=== PATIENT | male | born 1945 | race Caucasian/White ===

== ENCOUNTER 2019-11-30 09:29 | Outpatient (CLI) | payer MEDICARE, SELFPAY ==
--- NOTE | 2019-11-30 09:52 | CT_ITS ---
WS: [id number] CT ABDOMEN PELVIS TECHNIQUE: Contrast-enhanced CT of the abdomen and pelvis with coronal and sagittal reformatted image s. CLINICAL INFORMATION: FOLLOW UP COLON CA COMPARISON: None. DLP: 1149.[address] scans at [facility] use at least one of these dose optimization techniques: automat ed exposure control; mA and/or kV adjustment per patient size (includes targeted exams where dose is matched to clinical indication); or iterative reconstruction. FINDINGS: A few small low-attenuation lesions in the liver the largest in the left hepatic lobe anteriorly jose uring 11 mm. These are most consistent with hepatic cysts or small hemangiomas with some too small to characterize. Normal gallbladder. Normal portal vein and splenic vein. Normal GE junction. Lung base s are well aerated. Adrenal glands are normal. Normal renal parenchymal enhancement. No hydronephrosi s. Tiny right renal cyst. Normal caliber abdominal aorta. Normal spleen. Normal pancreas. Normal tani vincent abdominal aorta. Prior postoperative changes subtotal right colon resection with anastomosis. Moderate constipation. N o evidence of high-grade obstruction or recurrent mass. Marked enlargement and heterogeneous enhancement of the prostate with prominent nodularity. Prostate measures 5.2 x 5.3 x 7.3 CM. Recommend correlation with PSA. Indentation on the bladder. Scattered st ool in the colon. No evidence of high-grade obstruction. Incidental fat-containing umbilical hernia. No pelvic lymphadenopathy. No inguinal lymphadenopathy. Slight anterolisthesis L5 on S1. Chronic L5 spondylolysis. Multilevel degenerative disc disease with disc space narrowing throughout the lumbar spine. CT/CT abdomen pelvis w con* [id number] IMPRESSION: 1. Prior postoperative changes subtotal right colon resection with anastomosis . Moderate constipation. 2. No abdominal or pelvic lymphadenopathy. 3. Marked enlargement and heterogeneous enhancement of the prostate with nodul arity suspicious for neoplasia. Recommend correlation PSA. 4. Low-attenuation lesions in the liver most consistent with hepatic cysts and /or hemangiomas. Some are too small to characterize. 5. Grade 1 anterolisthesis L5 on S1 with chronic spondylolysis.
[2019-11-30] MEDS: iohexol 300 mg/mL 50 mL Btl PO (11:20)
[2019-11-30 11:25] LABS: Blood Urea Nitrogen 15 mg/dL (8-23)
[2019-11-30] MEDS: iohexol 300 mg/mL 100 mL Btl IV (11:33)
== END 2019-11-30 09:30 | disposition home or self-care (01) ==
LOC: RADWPI 09:34
PROVIDERS: Radiology Neuroradiology; Family Provider Family Medicine; PCP Family Medicine; Visit Provider Colon & Rectal Surgery
DX: C18.9 Malignant neoplasm of colon, unspecified (principal); Z98.890 Other specified postprocedural states; N40.0 Benign prostatic hyperplasia without lower urinary tract symptoms; M47.897 Other spondylosis, lumbosacral region
CPT/HCPCS: 74177; 82565; 84520; Q9967

== ENCOUNTER 2023-01-01 10:35 | Outpatient (CLI) | payer MEDICARE, SELFPAY ==
--- NOTE | 2023-01-01 11:03 | XR_ITS ---
WS: [id number] XR hand RT min 3V* [id number] REASON FOR EXAM: PAIN IN RIGHT FINGERS/PAIN IN R THUMB FINDINGS: No fracture or focal bone lesion. No erosions or periosteal reaction. Significant joint space narrowing with subchondral sclerosis and osteophytosis in the DIP joints of t he fingers. Similar arthropathic change in the PIP joint of the fifth finger. Similar but milder arth ropathic changes in the PIP joints of the second through the fourth fingers. Similar arthropathic change in the joints of the thumb. No soft tissue abnormality. XR/XR hand RT min 3V* [id number] IMPRESSION: Significant osteoarthritis of the fingers and thumb as above.
== END 2023-01-01 10:36 | disposition home or self-care (01) ==
PROVIDERS: PCP Family Medicine; Visit Provider Nurse Practitioner Family
DX: M19.041 Primary osteoarthritis, right hand (principal)
CPT/HCPCS: 73130

== ENCOUNTER 2023-12-22 08:12 | Outpatient (CLI) | payer MEDICARE, SELFPAY ==
--- NOTE | 2023-12-22 08:17 | XRR_ITS ---
PROCEDURE INFORMATION: Exam: XR Lumbosacral Spine Exam date and time: 12/22/2023 8:22 AM Age: 78 years old Clinical indication: Low back pain TECHNIQUE: Imaging protocol: Radiologic exam of the lumbosacral spine. Views: 2 or 3 views. COMPARISON: CT abdomen pelvis w con* [id number] 11/30/2019 11:30 AM FINDINGS: Bones/joints: No acute fracture. Normal alignment. Advanced multilevel degenerative changes throughout the lumbar spine. Grade 1 anterolisthesis of L5 on S1. Soft tissues: Unremarkable. XR/XR lumbar spine 2-3V* [id number] IMPRESSION: 1. No acute findings. 2. 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 Grade 1 anterolisthesis of L5 on S1.
== END 2023-12-22 08:13 | disposition home or self-care (01) ==
LOC: RAD 08:13
PROVIDERS: PCP Nurse Practitioner Family; Visit Provider Nurse Practitioner Family
DX: M47.896 Other spondylosis, lumbar region (principal); M54.50 Low back pain, unspecified
CPT/HCPCS: 72100

== ENCOUNTER 2025-07-16 04:11 | Emergency (ER) | payer MEDICARE, SELFPAY ==
[2025-07-16 04:12] VITALS: BP 134/79; PULSE 48; RESP 16; TEMP 36.6; O2SAT 92; BMI 22.4
--- OUTSIDE RECORDS SUMMARY | 2025-07-16 04:20 | XMS_ITS | Clinical Summary ---
Author Organization [facility] Administrative Offices Address [address] [place] [address] Care Team Providers Care Display Manager Name Role Phone Unavailable Primary Care Provider Unavailabl e Medications timoloL maleate (TIMOPTIC) 0.25% solution 1 Drop 2 times daily. 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 Gender Identity Not on file Sexual Orientation Not on file Last Filed Vital Signs Vital Sign Reading Time Taken Comments Blood Pressure 126/80 03/05/2023 2:58 PM CDT Pulse - - Temperature - - Respiratory Rate - - Oxygen Saturation - - Inhaled Oxygen Concentration - - Weight 76.2 kg (168 lb) 03/05/2023 2:58 PM CDT Height 182.9 cm (6') 03/05/2023 2:58 PM CDT Body Mass Index 22.78 03/05/2023 2:58 PM CDT Plan of Treatment Health Maintenance Due Date Last Done Comments PNEUMOCOCCAL VACCINE 50+ YEA RS (2 of 2 - PCV) 07/01/2021 07/01/2020 RSV VACCINE (60+ or ) (1 - 1-dose 75+ series) 2022 DTAP/TDAP/TD VACCINES (2 - T d or Tdap) 02/01/2022 02/02/2012, 08/07/2002 INFLUENZA VACCINE (#1) 2025 , 07/23/2023, 07/08/2022, Additional history exists COVID-19 Vaccine (2023-2 5 season) 2025 06/20/2024, 07/02/2023, 07/15/2022, Additional history exists ZOSTER VACCINE Completed 01/20/2021, 12/26, 12/17/2020, Additional history exists COLORECTAL SCREENING Discontinued 01/16/2025, 01/16/2025, 01/16/2025 Colorectal Cancer Screening Discontinued FIT-DNA Q 3 years Discontinued FIT/FOBT Q 1 year Discontinued Flex Sig/CT Colonography Q 5 years Discontinued Insurance
--- OUTSIDE RECORDS SUMMARY | 2025-07-16 04:21 | XMS_ITS | Patient Health Record ---
Author Organization [facility] Address [address] [place] [address] Support Name Relationship Address Phone Erasmo Cuenca Guarantor Unknown [phone] Reason For Referral No Information Plan Of Treatment No Information
--- OUTSIDE RECORDS SUMMARY | 2025-07-16 04:21 | XMS_ITS | Clinical Summary ---
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
--- OUTSIDE RECORDS SUMMARY | 2025-07-16 04:21 | XMS_ITS | Encounter Summary ---
Author Organization [facility] Address [address] [place] [address] Care Team Providers Care Watch Crystal Edge Grinder Name Role Phone Unavailable Primary Care Provider Unavailabl e Encounter Details Date Type Department Care Team (Latest Contact Info) Description 06/09/2007 Outpatient Historical [facility] Op[facility]mology 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
--- OUTSIDE RECORDS SUMMARY | 2025-07-16 04:21 | XMS_ITS | Patient Health Record ---
Author Organization [facility] Address [address] [facility] [address] [place] [address] Support Name Relationship Address Phone Erasmo Cuenca Guarantor Unknown [phone] Reason For Referral No Information Plan Of Treatment No Information
--- OUTSIDE RECORDS SUMMARY | 2025-07-16 04:21 | XMS_ITS | Encounter Summary ---
Author Organization [facility] Address [address] [place] [address] Care Team Providers Care Drosser Name Role Phone Unavailable Primary Care Provider Unavailabl e Encounter Details Date Type Department Care Team (Late st Contact Info) Description 06/17/1999 Outpatient Historical [facility] Dermatology- [address] [place] [address] Melvin Flores MD [address] 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
--- NOTE | 2025-07-16 04:26 | ED_ITS ---
HPI - Male Genitourinary General: Chief complaint: Urogenital-Male Stated complaint: Can Not Pee Time Seen by Provider: 07/16/25 04:16 Source: patient Mode of arrival: ambulatory Limitations: no limitations History of Present Illness: 72-year-old male states not been able to urinate over the last 6 hours. States he has tried multiple times of the last 2 hours and states he is not able to get anything out. He denies any fevers denies dysuria does have some suprapubic pain he rates a 6 out of 10. Related Data Allergies Allergy/AdvReac Type Severity Reaction Status Date / Time No Known Allergies Allergy Verified 07/16/25 04:17 Review of Systems : Reports: difficulty urinating Physical Exam Const: COMMON NORMALS: no acute distress, patient oriented x3 and healthy appearing HENMT: COMMON NORMALS: normocephalic and atraumatic HEAD & SCALP: normocephalic and atraumatic Eye: COMMON NORMALS: conjunctivae normal CONJUNCTIVA: Yes conjunctivae normal Neck/C-Spine: COMMON NORMALS: full ROM and supple Chest: COMMONS NORMALS: normal inspection of the chest Resp: COMMON NORMALS: normal respiratory effort Cardio: COMMON NORMALS: regular rate RATE: regular rate GI: COMMON NORMALS: Normal to inspection, nondistended, normoactive bowel sounds present, Soft to palpation and no masses PALPATION: Yes Soft to palpation OTHER: suprapubic tenderness Extremity: COMMON NORMALS: normal to inspection and full ROM Neuro: COMMON NORMALS: patient oriented x3, moves all extremities and no focal motor deficits Psych: COMMON NORMALS: mental status grossly normal, Normal thought process present and cooperative THOUGHT PROCESS: Normal thought process present Skin: COMMON NORMALS: no rashes or lesions noted and no wounds GENERAL SKIN EXAM: no rashes or lesions noted Course Vital Signs: Vital signs: Vital Signs Temperature 97.8 F 07/16/25 04:12 Pulse Rate 52 L 07/16/25 04:40 Respiratory Rate 16 07/16/25 04:12 Blood Pressure 137/82 07/16/25 04:40 Pulse Oximetry 93 07/16/25 04:40 Oxygen Delivery Me thod Room Air 07/16/25 04:40 MDM - Male Medical Decision Making Patient presents here with difficulty urinating. Patient does have urinary retention did place a Polk has roughly 1 L out and feels much improved here. No signs of UTI no signs of prostatitis. States that he had missed his last 2 doses of Flomax. He is to start taking his Flomax again follow-up with his PCP in 3 to 5 days will get him urology follow-up as well will discharge him with Polk in place and leg bag he is return if worsening he understands agrees to plan Medical Records I reviewed the patient's medical records. Lab Data Laboratory Results Urine Color Yellow (Yellow) 07/16/25 04:30 Urine Appearance Clear (CLEAR) 07/16/25 04:30 Urine pH 6.5 (5-7) 07/16/25 04:30 Ur Specific Ezel 1.010 (1.005-1.030) 07/16/25 04:30 Urine Protein Negative (Negative) 07/16/25 04:30 Urine Glucose (UA) Negative (Normal) 07/16/25 04:30 Urine Ketones Negative (Negative) 07/16/25 04:30 Urine Blood 1+ (Negative) A 07/16/25 04:30 Urine Nitrate Negative (Negative) 07/16/25 04:30 Urine Bilirubin Negative (Negative) 07/16/25 04:30 Urine Urobilinogen 0.2 mg/dL (Negative) 07/16/25 04:30 Ur Leukocyte Esterase Negative (Negative) 07/16/25 04:30 Amorphous Sediment Not Reportable 07/16/25 04:30 All radiology interpretation(s) finalized by discharge Discharge Plan Discharge Patient Disposition: Home Clinical Impression: Acute retention of urine Condition: Stable Discharge Orders: Discharge ED (Routine); Ordered 07/16/25 Ordered By: Carina Avelar Referrals: Alena Silveira NP [Primary Care Provider, Unknown] - 4-7 days Discharge Diet: Advance as tolerated Discharge Activity: Resume usual activity Patient Instructions: Urinary Retention in Men (ED) Print Language: [place] Islander Coding Level of Care Code ED Engineering Supervisor for Karla Saenz
[2025-07-16 04:40] VITALS: BP 137/82; PULSE 52; O2SAT 93
[2025-07-16 04:50] LABS: Glucose Urine UA Negative (Normal); Nitrate Urine Negative (Negative); Specific Gravity, Urine 1.010 (1.005-1.030)
[2025-07-16 05:08] LABS: Add Urine Microscopic? YES
[2025-07-16 05:25] VITALS: BP 102/62; PULSE 51; O2SAT 93
== END 2025-07-16 05:20 | disposition home or self-care (01) ==
PROVIDERS: Emergency Provider Emergency Medicine; PCP Nurse Practitioner Family
DX: R33.8 Other retention of urine (principal)
CPT/HCPCS: 51702; 81001; 99283

== ENCOUNTER 2025-07-16 15:26 | Emergency (ER) | payer MEDICARE, SELFPAY ==
[2025-07-16 15:32] VITALS: BP 122/67; PULSE 60; RESP 17; TEMP 36.5; O2SAT 97; BMI 22.4
--- OUTSIDE RECORDS SUMMARY | 2025-07-16 16:12 | XMS_ITS | Clinical Summary ---
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
--- OUTSIDE RECORDS SUMMARY | 2025-07-16 16:12 | XMS_ITS | Clinical Summary ---
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
--- OUTSIDE RECORDS SUMMARY | 2025-07-16 16:12 | XMS_ITS | Encounter Summary ---
Author Organization [facility] Address [address] [place] [address] Care Team Providers Care Elevator Pilot Name Role Phone Unavailable Primary Care Provider Unavailabl e Encounter Details Date Type Department Care Team (Late st Contact Info) Description 06/17/1999 Outpatient Historical [facility] Dermatology- [address] [place] [address] Melvin Flores MD [address] 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
--- OUTSIDE RECORDS SUMMARY | 2025-07-16 16:12 | XMS_ITS | Encounter Summary ---
Author Organization [facility] Address [address] [place] [address] Care Team Providers Care Opener Verifier [employer] Name Role Phone Unavailable Primary Care Provider Unavailabl e Encounter Details Date Type Department Care Team (Latest Contact Info) Description 06/09/2007 Outpatient Historical [facility] Ophthalmology 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
--- NOTE | 2025-07-16 16:17 | PC.NURSE ---
LAB ATTEMPTED TO DRAW PT ORDERED BLOOD WHILE IN THE WAITING ROOM. THIS NURSE WAS IN TRIAGE. PT REFUSING BLOOD WORK WITH LAB. THIS NURSE WAS NOTIFIED. THIS NURSE EDUCATED PT ON THE NEED FOR THE BLOOD WORK. PT STILL CHOOSING TO REFUSE.
[2025-07-16 19:28] VITALS: BP 117/81; O2SAT 94
[2025-07-16 19:32] VITALS: BP 132/80; O2SAT 96
[2025-07-16 20:08] VITALS: BP 121/83; O2SAT 97
--- NOTE | 2025-07-16 20:53 | ED_ITS ---
HPI - Male Genitourinary General: Chief complaint: Urogenital-Male Stated complaint: Cath issues and pos blood in urine Time Seen by Provider: 07/16/25 18:56 History of Present Illness: 80 yo M with history of prior urinary re tention and colon resection (9 years ago) presented after Polk placement earlier today for acute urinary retention. Patient reports leakage of urine around the catheter since ~10:00 a.m. with minimal to no drainage into the bag, and visible red color in the bag. He soaked pads repeatedly, describing significant dribbling around the catheter. Earlier today he was unable to urinate for several hours and required Polk; prior episode 9 years ago involved larger retention volume (~1400 mL) vs ~900 mL this time per patient. He missed two days of tamsulosin but took one dose last night. Denies use of blood thinners. Currently does not feel he is ?filling up? again. Second ED visit today due to ongoing leakage and difficulty obtaining urology referral locally. Related Data Allergies Allergy/AdvReac Type Severity Reaction Status Date / Time No Known Allergies Allergy Verified 07/16/25 04:17 Physical Exam Const: COMMON NORMALS: no acute distress, patient oriented x3 and alert HENMT: COMMON NORMALS: normocephalic and atraumatic HEAD & SCALP: normocephalic and atraumatic Eye: COMMON NORMALS: Equal, round and reactive pupils present, EOMs intact bilaterally and no scleral icterus PUPIL: Yes Equal, round and reactive pupils present Resp: COMMON NORMALS: normal respiratory effort and No retractions Cardio: COMMON NORMALS: regular rate, regular rhythm and No murmurs present (Cardio) RATE: regular rate RHYTHM: regular rhythm GI: COMMON NORMALS: Normal to inspection, nondistended, normoactive bowel sounds present, Soft to palpation and non-tender PALPATION: Yes Soft to palpation : OTHER: Polk catheter in place with leg bag completely full of urine. Very mild leakage around the Polk catheter exiting the urethra. Bedside ultrasound shows distended abdomen with appropriate Polk balloon placement. Neuro: COMMON NORMALS: patient oriented x3 SENSORIUM/ORIENTATION: Yes alert Skin: COMMON NORMALS: no rashes or lesions noted GENERAL SKIN EXAM: no rashes or lesions noted Course Vital Signs: Vital signs: Vital Signs Temperature 97.7 F 07/16/25 15:32 Pulse Rate 51 L 07/16/25 21:03 Respiratory Rate 16 07/16/25 21:03 Blood Pressure 121/70 07/16/25 21:03 Pulse Oximetry 94 07/16/25 21:03 Oxygen Delivery Me thod Room Air 07/16/25 20:08 MDM - Male Medical Decision Making 80 yo M with urinary retention earlier today s/p Polk now with persistent leakage around catheter and minimal bag output; blood-tinged urine noted. No anticoagulant use; on tamsulosin with recent nonadherence. [Pertinent Vital Signs Not Available] [Pertinent PE Findings Not Available] Bedside bladder ultrasound performed: Polk balloon abutting bladder wall in appropriate position, with fluid around the balloon concerning for obstruction within the catheter lumen. No labs or other imaging discussed as completed. Obstructed Polk catheter considered most likely given correct position with poor drainage and pericatheter leakage; clot within catheter discussed. Malposition less likely given ultrasound position. Prostatic obstruction suspected as cause of retention. After leg bag was drained, 900 cc of urine flowed directly out of the catheter. Catheter appears to be flowing correctly with no further leakage. He will be discharged in stable condition with referral to urology for definitive management of his urinary retention. No radiology studies performed this visit Discharge Plan Discharge Patient Disposition: Home Clinical Impression: Complication of Polk catheter Condition: Stable Discharge Orders: Discharge ED (Routine); Ordered 07/16/25 Ordered By: Roddy Tong Referrals: Alena Silveira NP [Primary Care Provider, Unknown] Burt Koenig MD [Referring, Urology] - 1 week Referral Note: newly retaining, on flomax Clinical Impression: Complication of Polk catheter Discharge Diet: Usual diet Discharge Activity: Increase activity as tolerated Patient Instructions: Polk Catheter Placement and Care (ED), Patient Portal & Fabian Instructions Print Language: Polish Coding Level of Care Code ED Senior Lead Java Developer for Karla Saenz
[2025-07-16 21:03] VITALS: BP 121/70; PULSE 51; RESP 16; O2SAT 94
--- NOTE | 2025-07-19 08:58 | DCPLANNER ---
faxed urology referral to [facility]
== END 2025-07-16 21:03 | disposition home or self-care (01) ==
PROVIDERS: Emergency Provider Student in an Organized Health Care Education/Training Program; PCP Nurse Practitioner Family
DX: T83.091A Other mechanical complication of indwelling urethral catheter, initial encounter (principal); X58.XXXA Exposure to other specified factors, initial encounter
CPT/HCPCS: 99283